=== PATIENT | female | born 1990 | race Two or more races ===

== ENCOUNTER → 2016-11-01 | Outpatient (CLI) | payer OTHER ==
--- NOTE | 2016-11-01 15:45 | RAD ---
Abdominal ultrasound, 11/01/2016: History: Right upper quadrant pain The gallbladder is within normal limits in size. There is a 4 mm echogenic focus along the anterior wall of the gallbladder. It is nonmobile and nonshadowing. The appearance is compatible with a small polyp. No gallstones are seen. The gallbladder wall is otherwise unremarkable. No bile duct dilatation is seen. The visualized portions of the liver, spleen and both kidneys are unremarkable. The pancreas was obscured by overlying bowel. The abdominal aorta is of normal caliber. The visualized portions of the inferior vena cava are unremarkable. No free fluid is evident in the abdomen. IMPRESSION: 1. Small gallbladder polyp. 2. The abdominal ultrasound is otherwise unremarkable.
--- NOTE | 2016-11-01 15:51 | RAD ---
Pelvic ultrasound, 11/01/2016: History: Abdominal pain Transabdominal and transvaginal scans were obtained. The uterus measures 9.8 x 5.0 x 7.0 cm. There is echogenic thickening of the central uterine echo complex in the superior aspect of the uterus. It measures just over 2 cm in AP dimension at this level. The remainder of the uterus is mildly heterogeneous. The ovaries are of normal size. There is a 2 cm cyst in the left ovary. There is a trace amount of free fluid in the cul-de-sac. This amount of fluid can be on a physiologic basis. IMPRESSION: 1. Thickened central uterine echo complex in the fundal region which may be due to endometrial hyperplasia, an endometrial polyp or submucosal fibroid. 2. Small left ovarian cyst. 3. Small amount of free fluid in the pelvis.
== END | disposition home or self-care (01) ==
LOC: US 09:59
PROVIDERS: ATTEND Internal Medicine
DX: R10.30 Lower abdominal pain, unspecified (principal); K82.4 Cholesterolosis of gallbladder; N83.202 Unspecified ovarian cyst, left side
CPT/HCPCS: 76700; 76830; 76856